=== PATIENT | female | born 1965 | race Caucasian/White ===

== ENCOUNTER → 2017-01-18 | Outpatient (CLI) | payer BC | END | disposition home or self-care (01) | LOC: DXRADRC 08:37 | PROVIDERS: ATTEND Physician Assistant Medical | DX: R05 Cough (principal); N20.0 Calculus of kidney | CPT/HCPCS: 71020 ==

== ENCOUNTER → 2017-01-26 | Outpatient (CLI) | payer BC ==
--- NOTE | 2017-01-26 10:37 | RAD ---
Thyroid ultrasound, 01/26/2017: History: Elevated TSH The right lobe of the gland measures 3.0 x 1.0 x 1.0 cm while the left lobe of the gland measures 3.4 x 1.0 x 1.0 cm. The thyroid echo pattern is mildly heterogeneous. Several thyroid nodules are noted bilaterally. These include a cluster of 2 relatively isoechoic nodules in the mid to lower aspect of the left lobe of the gland. These 2 nodules appear smooth with hypoechoic halos. The largest of these measures 1 cm in greatest dimension. There is an additional 9 mm slightly hypoechoic nodule in the posterior aspect of the left lobe of the gland. There is a 1 cm nodule in the posterior aspect of the right lobe of the gland which is only slightly less echogenic than the adjacent parenchyma. In some areas it is difficult to distinguish from the adjacent thyroid parenchyma. The above described thyroid nodules appear to be solid. No thyroid calcifications or highly suspicious features are seen. IMPRESSION: Heterogeneous multinodular thyroid gland as described above. The ultrasound characteristics of these individual nodules are nonspecific. Sonographic follow-up is suggested.
== END | disposition home or self-care (01) ==
LOC: US 07:48
PROVIDERS: ATTEND Physician Assistant Medical
DX: E04.2 Nontoxic multinodular goiter (principal)
CPT/HCPCS: 76536

== ENCOUNTER → 2021-02-12 | Outpatient (CLI) | payer BC ==
--- NOTE | 2021-02-12 10:30 | RAD ---
EXAM: XR CHEST 2V 02/12/2021 10:07 AM CLINICAL INDICATION: Cough COMPARISON: Chest radiograph 01/18/2017 TECHNIQUE: PA and lateral views of the chest FINDINGS: The heart and mediastinum are normal. Lungs are well-expanded and clear. No pleural effusi on or pneumothorax. No acute osseous abnormality. IMPRESSION: Normal chest. Electronically signed by: Griselda Hernandez MD (02/12/2021 10:27 AM) [id number]
== END ==
LOC: PMG 10:00
PROVIDERS: ATTEND Physician Assistant
DX: R05 Cough (principal); R06.02 Shortness of breath; R06.2 Wheezing
CPT/HCPCS: 71046